=== PATIENT | female | born 1955 | race Caucasian/White ===

== ENCOUNTER 2021-10-15 07:49 | Day surgery (SDC) | payer MEDICARE ==
[~2021-10-15 07:49] MED LIST: ATOR20 PO; Aspir 8181 MG PO; Budeprion Xl300 MG PO; ETOD300; GABA300 PO; MELO7.5; MONT10T; NITR.4SL SL; OLAN5 PO; OMEP20ER PO; Paxil40 MG PO; TRAZ150T57 PO; Tessalon Perle100 MG PO
== END 2021-10-15 10:13 | disposition home or self-care (01) ==
LOC: ORSCSDS 07:49 → ORSCMMR 09:30 → ORD 09:30 → ORSCSDS 09:30 → ORSCMMR 10:15
PROVIDERS: Internal Medicine Gastroenterology
PROC: 0DBM8ZX Excision of Descending Colon, Via Natural or Artificial Opening Endoscopic, Diagnostic (ICD-10-PCS; principal; 2021-10-15 09:30)
DX: K62.5 Hemorrhage of anus and rectum (principal); K59.09 Other constipation; D12.4 Benign neoplasm of descending colon; I10 Essential (primary) hypertension; J45.909 Unspecified asthma, uncomplicated; K21.9 Gastro-esophageal reflux disease without esophagitis; E78.00 Pure hypercholesterolemia, unspecified; E66.01 Morbid (severe) obesity due to excess calories; Z68.43 Body mass index [BMI] 50.0-59.9, adult; Z79.899 Other long term (current) drug therapy; Z79.82 Long term (current) use of aspirin
CPT/HCPCS: 88305; A9270; J2704; J7120

== ENCOUNTER 2021-10-19 02:30 | Day surgery (SDC) | payer MEDICARE | END 2021-10-19 23:14 | disposition home or self-care (01) | LOC: WOUND 02:30 | DX: L89.313 Pressure ulcer of right buttock, stage 3 (principal); E66.01 Morbid (severe) obesity due to excess calories; J45.909 Unspecified asthma, uncomplicated; L30.8 Other specified dermatitis; Z68.43 Body mass index [BMI] 50.0-59.9, adult; Z86.16 Personal history of COVID-19 | CPT/HCPCS: G0463 ==

== ENCOUNTER 2021-11-02 00:27 | Day surgery (SDC) | payer MEDICARE | END 2021-11-02 23:45 | disposition home or self-care (01) | LOC: WOUND 00:27 | DX: L89.312 Pressure ulcer of right buttock, stage 2 (principal); L25.9 Unspecified contact dermatitis, unspecified cause; E66.01 Morbid (severe) obesity due to excess calories; J45.909 Unspecified asthma, uncomplicated; Z68.43 Body mass index [BMI] 50.0-59.9, adult; F17.210 Nicotine dependence, cigarettes, uncomplicated | CPT/HCPCS: 99406; A9270; G0463 ==

== ENCOUNTER 2021-11-30 01:28 | Day surgery (SDC) | payer MEDICARE | END 2021-11-30 23:50 | disposition home or self-care (01) | LOC: WOUND 01:28 | DX: L89.312 Pressure ulcer of right buttock, stage 2 (principal); L30.8 Other specified dermatitis; J45.909 Unspecified asthma, uncomplicated; Z86.16 Personal history of COVID-19 | CPT/HCPCS: A9270; G0463 ==

== ENCOUNTER 2022-01-11 00:35 | Day surgery (SDC) | payer MEDICARE | END 2022-01-11 23:35 | disposition home or self-care (01) | LOC: WOUND 00:35 | DX: L89.312 Pressure ulcer of right buttock, stage 2 (principal); L30.8 Other specified dermatitis; Z86.16 Personal history of COVID-19; E66.01 Morbid (severe) obesity due to excess calories; Z68.43 Body mass index [BMI] 50.0-59.9, adult | CPT/HCPCS: G0463 ==

== ENCOUNTER 2022-02-08 02:08 | Day surgery (SDC) | payer MEDICARE | END 2022-02-08 23:24 | disposition home or self-care (01) | LOC: WOUND 02:08 | DX: L89.313 Pressure ulcer of right buttock, stage 3 (principal); L24.A2 Irritant contact dermatitis due to fecal, urinary or dual incontinence | CPT/HCPCS: A9270; G0463 ==

== ENCOUNTER 2022-09-30 13:15 | Emergency (ER) | payer MEDICARE ==
[~2022-09-30] VITALS: Ht 167.6 cm; Wt 149.7 kg
[2022-09-30 18:20] VITALS: BP 153/53
== END 2022-09-30 18:30 | disposition home or self-care (01) ==
LOC: ER 13:15
DX: T84.023A Instability of internal left knee prosthesis, initial encounter (principal); E78.00 Pure hypercholesterolemia, unspecified; Z79.899 Other long term (current) drug therapy; X50.1XXA Overexertion from prolonged static or awkward postures, initial encounter
CPT/HCPCS: 73560-LT; 73562-LT; J1885; J3010; J7030

== ENCOUNTER → 2024-05-31 | Outpatient (CLI) | payer MEDICARE ==
[2024-05-31 12:01] LABS: BASOPHILS ABSOLUTE AUTO 0.08 K/mm3 (0.00-0.23); BASOPHILS PERCENT AUTO 1 % (0-2); EOSINOPHILS ABSOLUTE AUTO 0.25 K/mm3 (0.00-0.68); EOSINOPHILS PERCENT AUTO 3 % (0-6); Hematocrit 34.9 % (33.0-51.0); Hemoglobin 10.8 g/dL (11.5-16.0); IMMATURE GRAN ABSOLUTE AUTO 0.06 K/mm3 (0.00-0.10); IMMATURE GRAN PERCENT AUTO 1 % (0-1); LYMPHOCYTES ABSOLUTE AUTO 3.07 K/mm3 (0.84-5.20); LYMPHOCYTES PERCENT AUTO 31 % (21-46); MONOCYTES ABSOLUTE AUTO 0.74 K/mm3 (0.16-1.47); MONOCYTES PERCENT AUTO 7 % (4-13); Mean Corpuscular HGB 25.7 pg (26.0-34.0); Mean Corpuscular HGB Conc 30.9 g/dL (31.5-36.5); Mean Corpuscular Volume 83 fL (80-100); Mean Platelet Volume 11.2 fL (9.1-12.4); NEUTROPHILS ABSOLUTE AUTO 5.88 K/mm3 (1.96-9.15); NEUTROPHILS PERCENT AUTO 58 % (41-73); Platelet Count 343 K/mm3 (150-400); RDW Coefficient Variation 18.2 % (11.7-14.2); RDW Standard Deviation 54.8 fL (35.1-46.3); Red Blood Cell Count 4.21 M/mm3 (3.80-5.20); White Blood Cell Count 10.08 K/mm3 (4.00-11.30)
[2024-05-31 12:44] LABS: Alanine Aminotransfer (ALT/SGP 19 U/L (12-78); Albumin, Blood 2.9 g/dL (3.4-5.0); Albumin/Globulin Ratio 0.6 (0.8-1.8); Alk Phos 159 U/L (50-136); Anion Gap 10 mmol/L (3-11); Aspartate Aminotrans (AST/SGOT 13 U/L (12-37); Bilirubin, Total 0.2 mg/dL (0.1-1.0); Blood Urea Nitrogen 21 mg/dL (8-24); Bun/Creatinine Ratio 16.9 (12.0-20.0); CHOL/HDL RATIO 2.3; CO2, Blood 27 mmol/L (21-32); Calcium, Blood 8.7 mg/dL (8.5-10.1); Chloride, Blood 106 mmol/L (98-108); Cholesterol 132 mg/dL (50-200); Creatinine, Blood 1.24 mg/dL (0.40-1.00); Globulin, Blood 5.2 g/dL (2.2-4.0); Glomerular Filtration Rate 48 (60-); Glucose, Blood 124 mg/dL (70-99); HDL Cholesterol 57 mg/dL (>39); Low Density Lipoprotein Chol 57 mg/dL (0-110); Potassium, Blood 3.5 mmol/L (3.5-5.5); Sodium, Blood 139 mmol/L (136-145); Total Protein, Blood 8.1 g/dL (6.4-8.2); Triglycerides 88 mg/dL (30-160); Very Low Density Lipoprot Chol 17 mg/dL (6-32)
[2024-06-02 09:03] LABS: HIV 1,2 COMBO ANTIGEN/ANTIBODY Negative (Negative)
== END ==
LOC: LAB SHORT 10:47 → LAB 10:47
PROVIDERS: Family Medicine
DX: Z11.4 Encounter for screening for human immunodeficiency virus [HIV] (principal); Z79.899 Other long term (current) drug therapy
CPT/HCPCS: 80053; 80061; 82306; 84443; 85025; 87389

== ENCOUNTER 2024-08-08 09:08 | Emergency (ER) | payer MEDICARE ==
[~2024-08-08] VITALS: Ht 167.6 cm; Wt 156.9 kg
[2024-08-08] MEDS ORDERED: PAXIL40 M1 PO (09:43)
[2024-08-08] MEDS ORDERED: PREGABALIN75 MG PO (09:44)
[2024-08-08] MEDS ORDERED: LOSARTAN-HCTZ1 EAC5 PO (09:44)
[2024-08-08] MEDS ORDERED: ALBUTEROL0.63 MG/3 INH (09:45)
[2024-08-08] MEDS ORDERED: OLANZAPINE5 M1 PO (09:45)
[2024-08-08 09:49] LABS: BASOPHILS ABSOLUTE AUTO 0.08 K/mm3 (0.00-0.23); BASOPHILS PERCENT AUTO 1 % (0-2); EOSINOPHILS ABSOLUTE AUTO 0.24 K/mm3 (0.00-0.68); EOSINOPHILS PERCENT AUTO 2 % (0-6); Hematocrit 33.6 % (33.0-51.0); Hemoglobin 10.3 g/dL (11.5-16.0); IMMATURE GRAN ABSOLUTE AUTO 0.08 K/mm3 (0.00-0.10); IMMATURE GRAN PERCENT AUTO 1 % (0-1); LYMPHOCYTES ABSOLUTE AUTO 2.88 K/mm3 (0.84-5.20); LYMPHOCYTES PERCENT AUTO 23 % (21-46); MONOCYTES ABSOLUTE AUTO 0.67 K/mm3 (0.16-1.47); MONOCYTES PERCENT AUTO 5 % (4-13); Mean Corpuscular HGB 25.7 pg (26.0-34.0); Mean Corpuscular HGB Conc 30.7 g/dL (31.5-36.5); Mean Corpuscular Volume 84 fL (80-100); Mean Platelet Volume 11.1 fL (9.1-12.4); NEUTROPHILS ABSOLUTE AUTO 8.78 K/mm3 (1.96-9.15); NEUTROPHILS PERCENT AUTO 69 % (41-73); Platelet Count 287 K/mm3 (150-400); RDW Coefficient Variation 19.4 % (11.7-14.2); Red Blood Cell Count 4.01 M/mm3 (3.80-5.20); White Blood Cell Count 12.73 K/mm3 (4.00-11.30)
[2024-08-08 10:32] LABS: Albumin, Blood 2.9 g/dL (3.4-5.0); Albumin/Globulin Ratio 0.6 (0.8-1.8); Bilirubin, Total 0.3 mg/dL (0.1-1.0); Bun/Creatinine Ratio 17.2 (12.0-20.0); Calcium, Blood 8.9 mg/dL (8.5-10.1); Creatinine, Blood 1.28 mg/dL (0.40-1.00); Globulin, Blood 4.8 g/dL (2.2-4.0); Total Protein, Blood 7.7 g/dL (6.4-8.2)
[2024-08-08] MEDS ORDERED: Sod Phosphate/Sod Biphosphate 132 ML BTL PR ONE (11:25)
[2024-08-08 14:05] VITALS: BP 131/81
== END 2024-08-08 14:00 | disposition home or self-care (01) ==
LOC: ER 09:08
PROVIDERS: Student in an Organized Health Care Education/Training Program
DX: K59.00 Constipation, unspecified (principal); E78.00 Pure hypercholesterolemia, unspecified; Z79.899 Other long term (current) drug therapy
CPT/HCPCS: 74177; 80053; 83690; 85025; 99284-25; A9270; Q9967

== ENCOUNTER → 2024-09-28 | Outpatient (CLI) | payer MEDICARE ==
[~2024-09-28] MED LIST changes: +ALBUTEROL0.63 MG/3 INH; +LOSARTAN-HCTZ1 EAC5 PO; +OLANZAPINE5 M1 PO; +PAXIL40 M1 PO; +PREGABALIN75 MG PO
[2024-10-01 13:16] LABS: CORTISOL,U FREE - RATIO TO CRT 14.82 ug/g CRT; CORTISOL,URINE FREE - PER 24H 20.8 ug/d (<=45.0); CREATININE,URINE - PER 24H 1400 mg/d (500-1400); CREATININE,URINE - PER VOLUME 56 mg/dL; HOURS COLLECTED 24 hr; TOTAL VOLUME 2500 mL
== END ==
LOC: LAB FUT 09-21 09:50 → LAB SHORT 07:30 → LAB 07:30
PROVIDERS: Internal Medicine Nephrology
DX: N18.2 Chronic kidney disease, stage 2 (mild) (principal); D63.1 Anemia in chronic kidney disease; N25.81 Secondary hyperparathyroidism of renal origin; E55.9 Vitamin D deficiency, unspecified; E78.00 Pure hypercholesterolemia, unspecified; R76.9 Abnormal immunological finding in serum, unspecified; R94.5 Abnormal results of liver function studies; R94.6 Abnormal results of thyroid function studies
CPT/HCPCS: 82530

== ENCOUNTER → 2025-01-22 | Outpatient (CLI) | payer MEDICARE ==
[2025-01-22 20:41] LABS: Ferritin, Serum 16.0 ng/mL (8-252); Total Iron Binding Capacity 348.0 ug/dL (250-450)
== END | disposition home or self-care (01) ==
LOC: LAB 11:55 → LAB SHORT 11:55
PROVIDERS: Family Medicine
DX: D64.9 Anemia, unspecified (principal)
CPT/HCPCS: 82728; 83540; 83550